=== PATIENT | male | born 1945 | race Caucasian/White ===

== ENCOUNTER 2022-09-14 15:51 | Outpatient (CLI) | payer MEDICARE, BC, SELFPAY | END 2022-09-14 15:52 | disposition home or self-care (01) | LOC: AMB 09-18 09:42 | PROVIDERS: PCP Family Medicine; Visit Provider Internal Medicine | DX: R53.1 Weakness (principal); R50.9 Fever, unspecified | CPT/HCPCS: A0425; A0427 ==

== ENCOUNTER 2022-09-14 16:30 | Inpatient (IN) | payer MEDICARE, BC, SELFPAY ==
[2022-09-14] VITALS (25 sets, daily range): BP systolic 94–135; BP diastolic 44–69; PULSE 92–115; RESP 18; TEMP 36.9–39.1; O2SAT 92–97; BMI 30.7; BMI 31.4
[2022-09-14 17:30] LABS: Appearance Urine Clear (Clear); Bilirubin Urine Negative (Negative); Blood Urine Trace-intact (Negative); Color Urine Yellow (Yellow); Glucose Urine Negative (Negative); Ketones Urine Negative (Negative); Leukocyte Esterase Urine Trace (Negative); Nitrite Urine Positive (Negative); Protein Urine 1+ (Negative); Urobilinogen Urine 0.2 (0.2-1.0); pH Urine 5.5 (5.0-8.5)
[2022-09-14 17:38] LABS: Bacteria Urine Few; RBC Urine 0-2 (0-2); Squamous Epithelial Cell Urine Few (None-Few); WBC Urine 0-2 (0-5)
[2022-09-14 17:57] LABS: Lactate* 1.3 mmol/L (0.5-1.9)
[2022-09-14 17:58] LABS: Basophils Percent Auto 0.2 % (0.0-3.0); Hematocrit 26.1 % (37.0-53.0); Hemoglobin* 9.1 gm/dL (13.5-17.5); Immature Granulocytes Pct Auto 2.1 %; Lymphocytes Percent Auto 10.4 % (20-44); Mean Corpuscular HGB Conc 35 gm/dL (32-36); Mean Corpuscular Hemoglobin 28 pg (26-34); Mean Corpuscular Volume 81 fL (80-100); Monocytes Percent Auto 23.3 % (0.0-11.0); Platelet Count* 61 K/uL (140-440); Red Blood Count 3.23 m/uL (4.30-5.90); White Blood Count* 4.24 K/uL (4.50-11.00)
[2022-09-14 18:01] LABS: Slide Review Reflex No
[2022-09-14 18:02] LABS: Albumin* 3.9 g/dL (3.3-5.0); Chloride* 99 mmol/L (96-114); Potassium* 3.6 mmol/L (3.6-5.1); Sodium* 131 mmol/L (135-149)
[2022-09-14 18:05] LABS: Alanine Aminotransferase* 17 U/L (4-50); Alkaline Phosphatase* 55 U/L (40-150); Aspartate Amino Transferase* 22 U/L (12-35); Bilirubin Direct* 0.6 mg/dL (0.0-0.5); Bilirubin Total* 1.9 mg/dL (0.1-1.5); Blood Urea Nitrogen* 16 mg/dL (7-30); Calcium* 8.9 mg/dL (8.4-10.6); Carbon Dioxide* 23 mmol/L (20-32); Creatinine* 0.9 mg/dL (0.5-1.5); Est. Creatinine Clearance* 65.89; Estimated Glomerular Filt Rate 88 ml/min; Glucose* 107 mg/dL (60-115); Total Protein* 7.3 g/dL (6.0-8.3)
[2022-09-14] MEDS: 0.9 % SODIUM CHLORIDE 1000 ml 1,000 ML 500 ML IV (18:29)
--- NOTE | 2022-09-14 18:46 | ED_ITS ---
HPI - General Adult General Date Seen: 09/14/22 Chief complaint: Weakness Stated complaint: hypotensive Time Seen by Provider: 09/14/22 17:53 Source: patient and family Mode of arrival: EMS Limitations: no limitations History of Present Illness HPI narrative: Patient is a 76-year-old male who has been ill for the past couple of weeks. He was diagnosed with a urinary tract infection two and half weeks ago and treated as an outpatient with a course of Bactrim. His urine culture grew pansensitive E coli. He did seem to get better for a couple of days but is now feeling more weak over the past day or two. His blood pressure has been lower. He denies any dysuria, urgency, frequency. Today he spiked a fever up to 102.5. He has been too weak to get up and walk around his home. He has had very little to eat or drink today. He denies any hematuria. He denies back pain. Related Data Home Medications Medication Instructions Recorded Confirmed aspirin 81 mg capsule 81 mg PO DAILY 09/14/22 09/14/22 blood sugar diagnostic (Accu-Chek 09/14/22 09/14/22 Alejandrina Plus test strips) hydrochlorothiazide 25 mg tablet 25 mg PO DAILY 09/14/22 09/14/22 lancets (Accu-Chek Softclix 09/14/22 09/14/22 Lancets) lisinopril 20 mg tablet 20 mg PO DAILY 09/14/22 09/14/22 simvastatin 20 mg tablet 20 mg PO QPM 09/14/22 09/14/22 Previous Rx's Medication Instructions Recorded amoxicillin 500 mg capsule 2,000 mg PO ONCE #4 caps 12/27/21 Allergies Allergy/AdvReac Type Severity Reaction Status Date / Time No Known Drug Allergies Allergy Verified 09/14/22 16:37 Review of Systems Narrative: Review of systems is outlined above otherwise noted to be negative. He will be seeing a psychologist educational in a week or two for pancytopenia. His PCP is Dr. Ballard in [place] but is recent urinary tract infection was treated by Dr. Hicks in [place]. 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) ?Z96.641 - Presence of right artificial hip joint (ICD-10) Social History Highest level of school completed/degree received: Bachelor's degree Smoking Status: Former smoker Do you use any of these nicotine containing products: None Second hand tobacco smoke exposure: No How often do you have a drink containing alcohol: 2-3 times a week How many standard drinks containing alcohol do you have on a typical day: 1 or 2 How often do you have six or more drinks on one occasion: Never AUDIT-C Alcohol total score: 3 Non-prescribed substance use: denies use Caffeine: No service: Yes Exam Narrative: Exam Narrative: Vitals noted. Temp is 102.5?. Heart rate is about 110. Blood pressure 99/57. HEENT: Conjunctiva clear. Tympanic membranes are pearly white bilaterally. Posterior pharynx is clear without erythema or exudate. Neck is supple without adenopathy, thyromegaly, carotid bruit. Lungs: Clear to auscultation in all merchant. No wheezes, rales, rhonchi. Heart: Regular rate and rhythm without murmur. Abdomen: Soft and nontender. No guarding, rigidity, rebound. Bowel sounds are normal. No palpable masses. No CVA or suprapubic tenderness. Extremities: No cyanosis or edema. Good distal pulses. Skin: No abnormalities noted of the exposed skin. He is pale. Neurologic: Awake, alert, fully oriented. Neurologic exam is nonfocal. Const: Vital Signs, click to edit/add: Vital Signs - 24 hr 09/14/22 16:33 09/14/22 17:25 09/14/22 17:46 Temperature 102.4 F H Pulse Rate 107 H Pulse Rate [Pulse Oximeter] 115 H Respiratory Rate 18 Blood Pressure 127/65 107/64 Blood Pressure [Le ft Upper Arm] 135/69 Pulse Oximetry 94 92 Oxygen Delivery Me thod Room Air 09/14/22 17:47 09/14/22 18:00 09/14/22 18:03 Temperature Pulse Rate 106 H 107 H 104 H Pulse Rate [Pulse Oximeter] Respiratory Rate Blood Pressure 99/57 L Blood Pressure [Le ft Upper Arm] Pulse Oximetry 93 96 94 Oxygen Delivery Me thod 09/14/22 18:15 09/14/22 18:30 09/14/22 18:32 Temperature Pulse Rate 105 H 105 H 107 H Pulse Rate [Pulse Oximeter] Respiratory Rate Blood Pressure 99/46 L Blood Pressure [Le ft Upper Arm] Pulse Oximetry 93 96 97 Oxygen Delivery Me thod 09/14/22 18:45 09/14/22 16:30 09/14/22 19:00 Temperature Pulse Rate 103 H 98 Pulse Rate [Pulse Oximeter] Respiratory Rate Blood Pressure Blood Pressure [Le ft Upper Arm] Pulse Oximetry 95 93 95 Oxygen Delivery Me thod 09/14/22 19:02 09/14/22 19:03 Temperature Pulse Rate 104 H 106 H Pulse Rate [Pulse Oximeter] Respiratory Rate Blood Pressure 111/64 Blood Pressure [Le ft Upper Arm] Pulse Oximetry 97 96 Oxygen Delivery Me thod Course Reevaluation(s) Reevaluation #1: Patient was seen and examined. Labs are ordered. He is given Tylenol 1000 mg orally. IV is established and he is given 1 L of normal saline. Reevaluation #2: Swab for COVID is negative. UA is nitrite positive with trace blood and leukocyte esterase, 1+ protein, a few bacteria. Urine culture is pending. Blood culture is pending. ProBNP is 250. LFTs are normal other than a bilirubin of 1.9. CRP is 2.0. Magnesium is 1.7. Basic metabolic panel is normal other than a sodium of 131. CBC shows hemoglobin of 9.1 [place] [address]. Patient is feeling better after his fevers treated. His lactate is normal at 1.3. Vital Signs Vital signs: Initial Vital Signs Pulse Oximetry 93 09/14/22 16:30 Vital Signs Pulse Oximetry 93 09/14/22 16:30 Temperature 100.5 F H 09/14/22 20:20 Pulse Rate 93 09/14/22 20:04 Respiratory Rate 18 09/14/22 20:04 Blood Pressure 114/64 09/14/22 20:04 Pulse Oximetry 93 09/14/22 20:04 Oxygen Delivery Method Room Air 09/14/22 20:04 Medical Decision Making MDM Narrative Medical decision making narrative: He has urinary tract infection and possible urosepsis. Decision is made to admit him to the hospital. Dr. Valdes is accepting. He is given Rocephin 2 g IV after collection of his blood cultures. Lab Data Labs: Lab Results 09/14/22 09/14/22 09/14/22 Range/Units 16:52 17:20 18:45 WBC 4.24 L (4.50-11.00) K/uL RBC 3.23 L (4.30-5.90) m/uL Hgb 9.1 L (13.5-17.5) gm/dL Hct 26.1 L (37.0-53.0) % MCV 81 (80-100) fL MCH 28 (26-34) pg MCHC 35 (32-36) gm/dL RDW Coeff of Lenora 17.0 H (11.5-15.5) % Plt Count 61 L (140-440) K/uL Neut % (Auto) 64.0 (42.0-72.0) % Lymph % (Auto) 10.4 L (20-44) % [place] % (Auto) 23.3 H (0.0-11.0) % Eos % (Auto) 0.0 (0.0-7.0) % Baso % (Auto) 0.2 (0.0-3.0) % Neut # (Auto) 2.70 (1.7-7.0) K/uL Lymph # (Auto) 0.40 L (0.90-2.90) K/uL [place] # (Auto) 1.00 H (0.00-0.90) K/UL Eos # (Auto) 0.00 (0.00-0.50) K/uL Baso # (Auto) 0.00 (0.00-0.30) K/uL Sodium 131 L (135-149) mmol/L Potassium 3.6 (3.6-5.1) mmol/L Chloride 99 (96-114) mmol/L Carbon Dioxide 23 (20-32) mmol/L BUN 16 (7-30) mg/dL Creatinine 0.9 (0.5-1.5) mg/dL Estimated Creat Clear 65.89 Estimated GFR 88 ml/min Glucose 107 (60-115) mg/dL Hemoglobin A1c 5.07 (0-5.6) % Lactate 1.3 (0.5-1.9) mmol/L Calcium 8.9 (8.4-10.6) mg/dL Magnesium 1.7 (1.5-2.6) mg/dL Total Bilirubin 1.9 H (0.1-1.5) mg/dL Direct Bilirubin 0.6 H (0.0-0.5) mg/dL AST 22 (12-35) U/L ALT 17 (4-50) U/L Alkaline Phosphatase 55 (40-150) U/L C-Reactive Protein 2.0 H (0.5-1.0) mg/dL NT-Pro-B Natriuret Pep 250 pg/mL Total Protein 7.3 (6.0-8.3) g/dL Albumin 3.9 (3.3-5.0) g/dL Procalcitonin 0.21 (<0.50) ng/mL Urine Color Yellow (Yellow) Urine Appearance Clear (Clear) Urine pH 5.5 (5.0-8.5) Ur Specific [place] 1.020 (1.000-1.030) Urine Protein 1+ A (Negative) Urine Glucose (UA) Negative (Negative) Urine Ketones Negative (Negative) Urine Blood Trace-intact A (Negative) Urine Nitrite Positive A (Negative) Urine Bilirubin Negative (Negative) Urine Urobilinogen 0.2 (0.2-1.0) Ur Leukocyte Esterase Trace A (Negative) Urine RBC 0-2 (0-2) Urine WBC 0-2 (0-5) Ur Squamous Epith Cells Few (None-Few) Urine Bacteria Few A (None) SARS-CoV-2 (PCR) Negative SARS-CoV-2 (Negative) Discharge Plan Discharge Clinical Impression: Acute UTI Patient Disposition: Admitted As Inpatient Condition: Guarded Activity Level: Activity as Tolerated Discharge Diet: Regular
[2022-09-14] MEDS: cefTRIAXone 2 GM in 0.9 % SODIUM CHLORIDE Mini-bag 100 ML IVPB (18:55)
[2022-09-14 19:22] LABS: SARS PCR* Negative SARS-CoV-2 (Negative)
[2022-09-14] MEDS: ACETAMINOPHEN 500 MG TABLET 1000 MG PO (19:39)
--- NOTE | 2022-09-14 19:45 | ED.NURSE ---
Report to ssds mk 2 advanced operator. Patient ambulated to the restroom without without difficulty. To Med surg via wheelchair with IVF infusing.
--- NOTE | 2022-09-14 19:54 | P.IMHP_ITS ---
Hospitalist- H&P: HPI History of Present Illness Date Seen: 09/14/22 Chief complaint: hypotensive Narrative: ADMISSION HISTORY AND PHYSICAL - HOSPITALIST Chief Complaint: Fever, weakness HPI: 76 yo with a history of pancytopenia, obesity, prediabetes, hypertension presents to our ER with acute weakness, fever and chills. He was diagnosed with a UTI back on August 28. This grew a pansensitive E coli. He was treated with 3 days of Bactrim DS. He said he felt well afterwards. His provider had sent him to Urology. He went to [facility] yesterday. Note is not available in the patient reports, ?they did not think much of the situation?. He said he woke up this morning feeling pretty good but by mid day he started to feel chilled, weak and febrile. He came this afternoon to our ED. he had a fever of 102. He was given fluid resuscitation, Tylenol, and his workup revealed a UTI. Blood cultures are pending prior to his 2 g Rocephin infusion. His lactate was normal. ER COURSE: Fluids, Rocephin. Distal Medicine team was asked to admit secondary to some mild hypotension CODE STATUS: Full code EMERGENCY CONTACT PLAN: I've updated the PFSH, medications and allergies in the Expanse tabs. INVESTIGATIONS: LABS/MICRO/ECG/IMAGING Upon arrival to the floor 110/61. Pulse 96. Resp is 18. Temp 100.7?. O2 sat 95% on room air. Weight is 99.8 kilos. CBC reflects a white blood cell count 4.24. Hemoglobin 9.1. Platelet count 61. 4/10 his white blood cell count was 2.3, hemoglobin was 9.3, platelet count was 65. 12/22, white blood cell count 3.1, hemoglobin 11.5. Platelet count 73. Sodium is slightly depressed at 131. Otherwise his electrolytes look normal. His creatinine is 0.9. His potassium is 3.6. His lactate is 1.3. Does have a slightly elevated total bili at 1.9 with a direct of 0.6, normal LFTs and protein. His bilirubin was normal 3 days ago. UA shows 1+ protein, positive nitrite, trace leukocyte esterase, few bacteria. Blood culture x2 pending. Urine culture pending. EKG has not either not been ordered or uploaded REVIEW OF SYSTEMS: 12-point ROS completed with patient and negative unless otherwise stated in HPI or below. PHYSICAL EXAM: CONSTITUTIONAL: Resting comfortably, coherent. Does not look septic. VITAL SIGNS: see record. HEENT: Normocephalic, atraumatic. PERRL, EOMI, conjunctivae pink, no scleral icterus. Ears and nose externally normal. Pharynx normal. NECK: No JVD. No carotid bruit, no thyromegaly, no adenopathy. CHEST: Clear to auscultation bilaterally HEART: S1 and S2 normal. No harsh murmurs. Edema MUSCULOSKELETAL: No gross joint deformity or swelling. NEURO: Cranial nerves intact. Grossly intact. No asymmetric findings. SKIN: No rashes, petechiae, concerning changes PSYCHIATRIC: Euthymic. ADMIT TO MEDSURG: FLOOR CARE DVT: Lovenox GI: PO intake Time spent: 70 minutes examining patient, conferring with family and patient, care staff, developing care plan [facility] Medical History Hyperlipidemia ?E78.5 - Hyperlipidemia, unspecified (ICD-10) Hypertension ?I10 - Essential (primary) hypertension (ICD-10) Obesity ?E66.9 - Obesity, unspecified (ICD-10) Pancytopenia ?D61.818 - Other pancytopenia (ICD-10) Pre-diabetes ?R73.03 - Prediabetes (ICD-10) Surgical History Contracture of palmar fascia (Dupuytren's) ?M72.0 - Palmar fascial fibromatosis [Dupuytren] (ICD-10) H/O right inguinal hernia repair ?Z98.890 - Other specified postprocedural states (ICD-10) ?Z87.19 - Personal history of other diseases of the digestive system (ICD-10) 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) ?Z96.641 - Presence of right artificial hip joint (ICD-10) Social History Highest level of school completed/degree received: Bachelor's degree Smoking Status: Former smoker Do you use any of these nicotine containing products: None Second hand tobacco smoke exposure: No How often do you have a drink containing alcohol: 2-3 times a week How many standard drinks containing alcohol do you have on a typical day: 1 or 2 How often do you have six or more drinks on one occasion: Never AUDIT-C Alcohol total score: 3 Non-prescribed substance use: denies use Caffeine: No service: Yes Meds Home Medications and Allergies Home Medications Medication Instructions Recorded Confirmed Type aspirin 81 mg capsule 81 mg PO DAILY 09/14/22 09/14/22 History blood sugar diagnostic (Accu-Chek 09/14/22 09/14/22 History Alejandrina Plus test strips) hydrochlorothiazide 25 mg tablet 25 mg PO DAILY 09/14/22 09/14/22 History lancets (Accu-Chek Softclix 09/14/22 09/14/22 History Lancets) lisinopril 20 mg tablet 20 mg PO DAILY 09/14/22 09/14/22 History simvastatin 20 mg tablet 20 mg PO QPM 09/14/22 09/14/22 History Allergies Allergy/AdvReac Type Severity Reaction Status Date / Time No Known Drug Allergies Allergy Verified 09/14/22 16:37 Exam Const: Vital Signs, click to edit/add: Vital Signs - 24 hr 09/14/22 16:33 09/14/22 17:25 09/14/22 17:46 Temperature 102.4 F H Pulse Rate 107 H Pulse Rate [Pulse Oximeter] 115 H Respiratory Rate 18 Blood Pressure 127/65 107/64 Blood Pressure [Le ft Upper Arm] 135/69 Pulse Oximetry 94 [address] [facility] 09/14/22 17:47 09/14/22 18:00 09/14/22 18:03 Temperature Pulse Rate 106 H 107 H 104 H Pulse Rate [Pulse Oximeter] Respiratory Rate Blood Pressure 99/57 L Blood Pressure [Le ft Upper Arm] Pulse Oximetry 93 96 94 Oxygen Delivery Me thod 09/14/22 18:15 09/14/22 18:30 09/14/22 18:32 Temperature Pulse Rate 105 H 105 H 107 H Pulse Rate [Pulse Oximeter] Respiratory Rate Blood Pressure 99/46 L Blood Pressure [Le ft Upper Arm] Pulse Oximetry 93 96 97 Oxygen Delivery De thod 09/14/22 18:45 09/14/22 16:30 09/14/22 19:00 Temperature Pulse Rate 103 H 98 Pulse Rate [Pulse Oximeter] Respiratory Rate Blood Pressure Blood Pressure [Le ft Upper Arm] Pulse Oximetry 95 93 [address] [facility] [address] 09/14/22 19:02 09/14/22 19:08 09/14/22 19:03 Temperature Pulse Rate 104 H 106 H Pulse Rate [Pulse Oximeter] Respiratory Rate Blood Pressure 111/64 Blood Pressure [Le ft Upper Arm] Pulse Oximetry 97 [address] [facility] [address] 09/14/22 19:15 09/14/22 19:30 09/14/22 19:32 Temperature Pulse Rate 99 114 H 110 H Pulse Rate [Pulse Oximeter] Respiratory Rate Blood Pressure 97/44 L Blood Pressure [Le ft Upper Arm] Pulse Oximetry 96 93 95 Oxygen Delivery [facility] 09/14/22 19:36 09/14/22 19:39 Temperature 100.7 F H 100.7 F H Pulse Rate 96 Pulse Rate [Pulse Oximeter] Respiratory Rate 18 Blood Pressure 110/61 Blood Pressure [Le ft Upper Arm] Pulse Oximetry 95 Oxygen Delivery [facility] Hospitalist - H&P: Result Labs Labs: Short CBC 09/14/22 Range/Units 16:52 WBC 4.24 L (4.50-11.00) K/uL Hgb 9.1 L (13.5-17.5) gm/dL Hct 26.1 L (37.0-53.0) % Plt Count 61 L (140-440) K/uL BMP 09/14/22 16:52 Sodium 131 L Potassium 3.6 Chloride 99 Carbon Dioxide 23 BUN 16 Creatinine 0.9 Glucose 107 Calcium 8.9 Liver Function 09/14/22 Range/Units 16:52 Total Bilirubin 1.9 H (0.1-1.5) mg/dL Direct Bilirubin 0.6 H (0.0-0.5) mg/dL AST 22 (12-35) U/L ALT 17 (4-50) U/L Alkaline Phosphatase 55 (40-150) U/L Albumin 3.9 (3.3-5.0) g/dL Urine 09/14/22 Range/Units 17:20 Urine Color Yellow (Yellow) Urine Appearance Clear (Clear) Urine pH 5.5 (5.0-8.5) Ur Specific [place] 1.020 (1.000-1.030) Urine Protein 1+ A (Negative) Urine Glucose (UA) Negative (Negative) Assessment and Plan Assessment and plan (1) Acute UTI: Problem comment: -urine culture from August 28 grew a pansensitive E coli. He was treated with 3 days of Bactrim DS. He was given a urology consult. [facility] saw him on yesterday, 09/13/2022. His blood pressure at the 08/28 visit was 98/60. He did state he thought Bactrim helped any felt better until today. -2 g ceftriaxone given in the ED, I will follow this up in 12 hours with 2 more g. IV fluids. Lovenox. Blood cultures are brewing. Status: Acute (2) Hyponatremia: Problem comment: Sodium 131. I will give him 2 L fluid restriction. Normal saline IV fluids. Status: Acute (3) Pancytopenia: Problem comment: -known issue. No worse tonight. Has a hematology consult next week. Status: Acute (4) Hypertension: Problem comment: -Hold home meds Status: Acute (5) Pre-diabetes: Problem comment: -check A1c. Accu-Cheks. Sliding scale if needed. No home meds. Status: Acute (6) Obesity: Status: Acute
--- NOTE | 2022-09-14 20:50 | CRLHL7_ITS ---
For Patients: As a result of the Cures Act, medical imaging exams and procedure reports are released immediately into your electronic medical record. You may view this report before your referring provider. If you have questions, please contact your health care provider. INDICATION: .FEVER, SEPSIS WORK UP TECHNIQUE: Chest 1 views. COMPARISON: None. FINDINGS: Lungs: Normal lung volume. No consolidation. The tracheobronchial tree and hilar structures are unremarkable. Pleura: No pleural effusion or pneumothorax. Heart and Mediastinum: Normal heart size. Atherosclerotic aorta. Bones: No acute displaced osseous process. IMPRESSION: No consolidation. Dictated by Jw Ring MD @ 09/14/2022 9:55:34 PM (Electronically Signed)
[2022-09-14] MEDS: SODIUM CHLORIDE 0.9 % (FLUSH) 10 ML SYRINGE 5 ML IVF (21:03)
[2022-09-14] MEDS: PANTOPRAZOLE SODIUM 40 MG INJ IVP (21:03)
[2022-09-14 21:06] LABS: Magnesium* 1.7 mg/dL (1.5-2.6)
[2022-09-14 21:07] LABS: Hemoglobin A1C* 5.07 % (0-5.6)
[2022-09-14 21:17] LABS: NT Pro B Type NatriureticPept* 250 pg/mL
[2022-09-14 21:24] LABS: Procalcitonin* 0.21 ng/mL (<0.50)
[2022-09-14] MEDS: 0.9 % SODIUM CHLORIDE 1000 ml 1,000 ML 125 ML IV (21:34)
[2022-09-14] MEDS: ENOXAPARIN 40 MG/0.4 ML INJ SUBCUT (21:35)
[2022-09-15] VITALS (18 sets, daily range): BP systolic 84–122; BP diastolic 5–66; PULSE 68–99; RESP 18–20; TEMP 36.4–37.7; O2SAT 18–97
[2022-09-15] MEDS: ACETAMINOPHEN 325 MG TABLET PO ×2 (04:04→11:36)
--- NOTE | 2022-09-15 04:28 | PM.IMPN1 ---
Subjective Date Seen: 09/15/22 Interval history: Getachew Bartlettist Cross Cover Note eHospitalist was contacted by nursing staff with concern of hypotension with manual BP of 88/50. NS bolus 250 cc over 1 hour. Thank you for including Getachew Bartlettist in the patients care. This service is available for further assistance as requested by your care team by calling [phone]. Exam Const: Vital Signs, click to edit/add: Vital Signs - 24 hr 09/14/22 16:33 09/14/22 17:25 09/14/22 17:46 Temperature 102.4 F H Pulse Rate 107 H Pulse Rate [Pulse Oximeter] 115 H Pulse Rate [Right Radial] Respiratory Rate 18 Blood Pressure 127/65 107/64 Blood Pressure [Le ft Arm] Blood Pressure [Le ft Upper Arm] 135/69 Pulse Oximetry 94 92 Oxygen Delivery Me thod Room Air 09/14/22 17:47 09/14/22 18:00 09/14/22 18:03 Temperature Pulse Rate 106 H 107 H 104 H Pulse Rate [Pulse Oximeter] Pulse Rate [Right Radial] Respiratory Rate Blood Pressure 99/57 L Blood Pressure [Le ft Arm] Blood Pressure [Le ft Upper Arm] Pulse Oximetry 93 96 94 Oxygen Delivery Me thod 09/14/22 18:15 09/14/22 18:30 09/14/22 18:32 Temperature Pulse Rate 105 H 105 H 107 H Pulse Rate [Pulse Oximeter] Pulse Rate [Right Radial] Respiratory Rate Blood Pressure 99/46 L Blood Pressure [Le ft Arm] Blood Pressure [Le ft Upper Arm] Pulse Oximetry 93 96 97 Oxygen Delivery Me thod 09/14/22 18:45 09/14/22 16:30 09/14/22 19:00 Temperature Pulse Rate 103 H 98 Pulse Rate [Pulse Oximeter] Pulse Rate [Right Radial] Respiratory Rate Blood Pressure Blood Pressure [Le ft Arm] Blood Pressure [Le ft Upper Arm] Pulse Oximetry 95 93 95 Oxygen Delivery Me thod 09/14/22 19:02 09/14/22 19:08 09/14/22 19:03 Temperature Pulse Rate 104 H 106 H Pulse Rate [Pulse Oximeter] Pulse Rate [Right Radial] Respiratory Rate Blood Pressure 111/64 Blood Pressure [Le ft Arm] Blood Pressure [Le ft Upper Arm] Pulse Oximetry 97 95 96 Oxygen Delivery Me thod 09/14/22 19:15 09/14/22 19:30 09/14/22 19:32 Temperature Pulse Rate 99 114 H 110 H Pulse Rate [Pulse Oximeter] Pulse Rate [Right Radial] Respiratory Rate Blood Pressure 97/44 L Blood Pressure [Le ft Arm] Blood Pressure [Le ft Upper Arm] Pulse Oximetry 96 93 95 Oxygen Delivery Me thod 09/14/22 19:36 09/14/22 19:39 09/14/22 20:01 Temperature 100.7 F H 100.7 F H 100.5 F H Pulse Rate 96 Pulse Rate [Pulse Oximeter] Pulse Rate [Right Radial] 93 Respiratory Rate 18 18 Blood Pressure 110/61 Blood Pressure [Le ft Arm] 114/64 Blood Pressure [Le ft Upper Arm] Pulse Oximetry 95 93 Oxygen Delivery Me thod Room Air 09/14/22 20:03 09/14/22 20:04 09/14/22 20:04 Temperature 100.5 F H Pulse Rate Pulse Rate [Pulse Oximeter] Pulse Rate [Right Radial] 93 Respiratory Rate 18 Blood Pressure Blood Pressure [Le ft Arm] 114/64 Blood Pressure [Le ft Upper Arm] Pulse Oximetry 93 93 93 Oxygen Delivery Me od Room Air Room Air Room Air 09/14/22 20:20 09/14/22 23:00 09/14/22 23:00 Temperature 100.5 F H 98.5 F Pulse Rate Pulse Rate [Pulse Oximeter] Pulse Rate [Right Radial] 92 92 Respiratory Rate 18 18 Blood Pressure Blood Pressure [Le ft Arm] 94/48 L Blood Pressure [Le ft Upper Arm] Pulse Oximetry 97 Oxygen Delivery Me thod Room Air 09/15/22 01:12 09/15/22 04:04 Temperature 99.6 F Pulse Rate 91 Pulse Rate [Pulse Oximeter] Pulse Rate [Right Radial] Respiratory Rate Blood Pressure Blood Pressure [Le ft Arm] Blood Pressure [Le ft Upper Arm] Pulse Oximetry Oxygen Delivery Me thod Labs Labs: Laboratory Results - last 24 hr 09/14/22 09/14/22 09/14/22 16:52 17:20 18:45 WBC 4.24 L RBC 3.23 L Hgb 9.1 L Hct 26.1 L MCV 81 MCH 28 MCHC 35 RDW Coeff of Lenora 17.0 H Plt Count 61 L Neut % (Auto) 64.0 Lymph % (Auto) 10.4 L [place] % (Auto) 23.3 H Eos % (Auto) 0.0 Baso % (Auto) 0.2 Neut # (Auto) 2.70 Lymph # (Auto) 0.40 L [place] # (Auto) 1.00 H Eos # (Auto) 0.00 Baso # (Auto) 0.00 Sodium 131 L Potassium 3.6 Chloride 99 Carbon Dioxide 23 BUN 16 Creatinine 0.9 Estimated Creat Clear 65.89 Estimated GFR 88 Glucose 107 Hemoglobin A1c 5.07 Lactate 1.3 Calcium 8.9 Magnesium 1.7 Total Bilirubin 1.9 H Direct Bilirubin 0.6 H AST 22 ALT 17 Alkaline Phosphatase 55 C-Reactive Protein 2.0 H NT-Pro-B Natriuret Pep 250 Total Protein 7.3 Albumin 3.9 Procalcitonin 0.21 Urine Color Yellow Urine Appearance Clear Urine pH 5.5 Ur Specific [place] 1.020 Urine Protein 1+ A Urine Glucose (UA) Negative Urine Ketones Negative Urine Blood Trace-intact A Urine Nitrite Positive A Urine Bilirubin Negative Urine Urobilinogen 0.2 Ur Leukocyte Esterase Trace A Urine RBC 0-2 Urine WBC 0-2 Ur Squamous Epith Cells Few Urine Bacteria Few A SARS-CoV-2 (PCR) Negative SARS-CoV-2
[2022-09-15] MEDS: 0.9 % SODIUM CHLORIDE 250 ml 250 ML IV (04:42)
[2022-09-15] MEDS: cefTRIAXone 2 GM in 0.9 % SODIUM CHLORIDE Mini-bag 100 ML IVPB (06:39)
[2022-09-15] MEDS: 0.9 % SODIUM CHLORIDE 1000 ml 1,000 ML 125 ML IV ×2 (06:40→17:26)
[2022-09-15 06:56] LABS: HCO3 VBG 26 mmol/L (21-28); Ionized Calcium* 1.11 mmol/L (1.11-1.30); PCO2 VBG 42 mmHG (40-50); PO2 VBG 22.6 mmHG (25-47); pH VBG 7.402 (7.32-7.43)
[2022-09-15 07:05] LABS: Basophils Absolute Auto 0.02 K/uL (0.00-0.30); Basophils Percent Auto 0.3 % (0.0-3.0); Hematocrit 22.9 % (37.0-53.0); Immature Granulocytes Abs Auto 0.26 K/uL (0.00-0.30); Immature Granulocytes Pct Auto 3.4 %; Lymphocytes Percent Auto 10.7 % (20-44); Mean Corpuscular HGB Conc 34 gm/dL (32-36); Mean Corpuscular Hemoglobin 28 pg (26-34); Mean Corpuscular Volume 82 fL (80-100); Monocytes Percent Auto 26.4 % (0.0-11.0); Neutrophils Absolute Auto 4.58 K/uL (1.7-7.0); Neutrophils Percent Auto 59.2 % (42.0-72.0); RDW Coefficient of Variation % 17.2 % (11.5-15.5); Red Blood Count 2.79 m/uL (4.30-5.90); White Blood Count* 7.73 K/uL (4.50-11.00)
[2022-09-15 07:18] LABS: INR 1.58 (0.91-1.10); Prothrombin Time 19.8 Seconds
[2022-09-15 07:20] LABS: Albumin* 3.1 g/dL (3.3-5.0); Chloride* 103 mmol/L (96-114); Sodium* 134 mmol/L (135-149)
[2022-09-15 07:21] LABS: Potassium* 3.4 mmol/L (3.6-5.1)
[2022-09-15 07:23] LABS: Bilirubin Total* 1.6 mg/dL (0.1-1.5); Creatinine* 1.3 mg/dL (0.5-1.5); Est. Creatinine Clearance* 50.68; Estimated Glomerular Filt Rate 57 ml/min
[2022-09-15 07:24] LABS: Alanine Aminotransferase* 14 U/L (4-50); Alkaline Phosphatase* 42 U/L (40-150); Aspartate Amino Transferase* 13 U/L (12-35); Blood Urea Nitrogen* 22 mg/dL (7-30); Carbon Dioxide* 25 mmol/L (20-32); Glucose* 115 mg/dL (60-115); Magnesium* 1.7 mg/dL (1.5-2.6); Total Protein* 5.9 g/dL (6.0-8.3)
[2022-09-15 07:26] LABS: C Reactive Protein* 7.4 mg/dL (0.5-1.0)
[2022-09-15 07:36] LABS: Troponin I* 0.03 ng/mL (0.01-0.04)
--- NOTE | 2022-09-15 07:36 | PC.NURSE ---
Shift note: BP was 88/50 at about 0400( the pt denied chest pain, short of breath, and dizzy)- E-hospitalist was called via telephone and an order for 250 ml of NS bolus received and given ; rechecked BP after the bolus for 99/50. The pt was very sweaty- denied chills . He stated I'm just tired. Orthostatic BP was done this AM- Dr Valdes was updated this AM.
[2022-09-15 08:01] LABS: Hemoglobin* 7.7 gm/dL (13.5-17.5); Platelet Count* 43 K/uL (140-440); Slide Review Reflex Yes
[2022-09-15 08:02] LABS: Slide Review Acceptable Review (Acceptable)
--- NOTE | 2022-09-15 10:40 | PM.IMPN1 ---
Progress Note: A&P Assessment and plan (1) Acute UTI: Problem details: -current urine culture is still pending as are blood cultures -procal and crp uptrending. WBC, while normal, is likely bumped from baseline neutropenia. -urine culture from August 28 grew a pansensitive E coli. He was treated with 3 days of Bactrim DS. -He was given a urology consult. [facility] saw him 09/13/2022. No note available. His blood pressure at the 08/28 visit was 98/60. -2 g ceftriaxone q24 hours. had had two doses as of am of 09/15. IV fluids. Lovenox. Status: Acute (2) Pancytopenia: Problem details: -known issue. hgb worse this am, transfusing 1 unit. supportive care/transfuse as needed. -heme consult next week was arranged prior to admission. Status: Acute (3) Hyponatremia: Problem details: improving. trend. Status: Acute (4) Pre-diabetes: Problem details: -A1c 5.0. Accu-Cheks. Sliding scale if needed. No home meds. Status: Acute (5) Obesity: Status: Acute (6) Hypertension: Problem details: -Hold home meds Status: Acute Subjective Date Seen: 09/15/22 Interval history: Daily Progress Note - Hospital Medicine #: 2 CC: UTI, hypotension, pancytopenia OVERNIGHT UPDATES FROM STAFF & MED, LAB, IMAGING UPDATES Patient feels about the same as last night. Still having some soft blood pressures. No new fevers. Feels hungry. Blood pressures have been 90s systolic. Afebrile. Last fever was 100.5? F at 8:00 p.m. last night. Pulses in the 80s. He is satting 94% on room air. Known pancytopenia - white blood cell count went from 4-7. His baseline had been 2. This likely represents a stress reaction in leukocytosis while the overall number is normal. Hemoglobin down to 7.7, platelets down to 43. PH is normal. Sodium has improved while potassium has dropped a little. His creatinine has bumped up to 1.3. Is on fluids. Total bilirubin is down trending to 1.6. On admission it was 1.9. He had been normal previously. Procalcitonin is up trending. CRP is up trending. Urine culture and blood cultures are still pending. Objective: tired but nontoxic. hungry. insightful. Vitals: see above Lungs: Clear. Cardiac: S1S2. abdmen: obese, nontender. Disposition/Potential discharge - Likely to return to previous living situation. Total time is 35 minutes with greater than 50% spent in counseling and coordination of care. Exam Const: Vital Signs, click to edit/add: Vital Signs - 24 hr 09/14/22 16:33 09/14/22 17:25 09/14/22 17:46 Temperature 102.4 F H Pulse Rate 107 H Pulse Rate [Pulse Oximeter] 115 H Pulse Rate [Right Radial] Pulse Rate [orthos tatic lying Right Pulse Oximeter] Pulse Rate [orthos tatic sitting Righ t Pulse Oximeter] Pulse Rate [orthos tatic standing Rig ht] Respiratory Rate 18 Blood Pressure 127/65 107/64 Blood Pressure [Le ft Arm] Blood Pressure [Le ft Upper Arm] 135/69 Blood Pressure [or thostatic lying] Blood Pressure [or thostatic sitting Right Arm] Blood Pressure [or thostatic standing ] Pulse Oximetry 94 92 Oxygen Delivery Me thod Room Air 09/14/22 17:47 09/14/22 18:00 09/14/22 18:03 Temperature Pulse Rate 106 H 107 H 104 H Pulse Rate [Pulse Oximeter] Pulse Rate [Right Radial] Pulse Rate [orthos tatic lying Right Pulse Oximeter] Pulse Rate [orthos tatic sitting Righ t Pulse Oximeter] Pulse Rate [orthos tatic standing Rig ht] Respiratory Rate Blood Pressure 99/57 L Blood Pressure [Le ft Arm] Blood Pressure [Le ft Upper Arm] Blood Pressure [or thostatic lying] Blood Pressure [or thostatic sitting Right Arm] Blood Pressure [or thostatic standing ] Pulse Oximetry 93 96 94 Oxygen Delivery Me thod 09/14/22 18:15 09/14/22 18:30 09/14/22 18:32 Temperature Pulse Rate 105 H 105 H 107 H Pulse Rate [Pulse Oximeter] Pulse Rate [Right Radial] Pulse Rate [orthos tatic lying Right Pulse Oximeter] Pulse Rate [orthos tatic sitting Righ t Pulse Oximeter] Pulse Rate [orthos tatic standing Rig ht] Respiratory Rate Blood Pressure 99/46 L Blood Pressure [Le ft Arm] Blood Pressure [Le ft Upper Arm] Blood Pressure [or thostatic lying] Blood Pressure [or thostatic sitting Right Arm] Blood Pressure [or thostatic standing ] Pulse Oximetry 93 96 97 Oxygen Delivery Me thod 09/14/22 18:45 09/14/22 16:30 09/14/22 19:00 Temperature Pulse Rate 103 H 98 Pulse Rate [Pulse Oximeter] Pulse Rate [Right Radial] Pulse Rate [orthos tatic lying Right Pulse Oximeter] Pulse Rate [orthos tatic sitting Righ t Pulse Oximeter] Pulse Rate [orthos tatic standing Rig ht] Respiratory Rate Blood Pressure Blood Pressure [Le ft Arm] Blood Pressure [Le ft Upper Arm] Blood Pressure [or thostatic lying] Blood Pressure [or thostatic sitting Right Arm] Blood Pressure [or thostatic standing ] Pulse Oximetry 95 93 95 Oxygen Delivery Vt thod 09/14/22 19:02 09/14/22 19:08 09/14/22 19:03 Temperature Pulse Rate 104 H 106 H Pulse Rate [Pulse Oximeter] Pulse Rate [Right Radial] Pulse Rate [orthos tatic lying Right Pulse Oximeter] Pulse Rate [orthos tatic sitting Righ t Pulse Oximeter] Pulse Rate [orthos tatic standing Rig ht] Respiratory Rate Blood Pressure 111/64 Blood Pressure [Le ft Arm] Blood Pressure [Le ft Upper Arm] Blood Pressure [or thostatic lying] Blood Pressure [or thostatic sitting Right Arm] Blood Pressure [or thostatic standing ] Pulse Oximetry 97 95 96 Oxygen Delivery Vt thod 09/14/22 19:15 09/14/22 19:30 09/14/22 19:32 Temperature Pulse Rate 99 114 H 110 H Pulse Rate [Pulse Oximeter] Pulse Rate [Right Radial] Pulse Rate [orthos tatic lying Right Pulse Oximeter] Pulse Rate [orthos tatic sitting Righ t Pulse Oximeter] Pulse Rate [orthos tatic standing Rig ht] Respiratory Rate Blood Pressure 97/44 L Blood Pressure [Le ft Arm] Blood Pressure [Le ft Upper Arm] Blood Pressure [or thostatic lying] Blood Pressure [or thostatic sitting Right Arm] Blood Pressure [or thostatic standing ] Pulse Oximetry 96 93 95 Oxygen Delivery Me thod 09/14/22 19:36 09/14/22 19:39 09/14/22 20:01 Temperature 100.7 F H 100.7 F H 100.5 F H Pulse Rate 96 Pulse Rate [Pulse Oximeter] Pulse Rate [Right Radial] 93 Pulse Rate [orthos tatic lying Right Pulse Oximeter] Pulse Rate [orthos tatic sitting Righ t Pulse Oximeter] Pulse Rate [orthos tatic standing Rig ht] Respiratory Rate 18 18 Blood Pressure 110/61 Blood Pressure [Le ft Arm] 114/64 Blood Pressure [Le ft Upper Arm] Blood Pressure [or thostatic lying] Blood Pressure [or thostatic sitting Right Arm] Blood Pressure [or thostatic standing ] Pulse Oximetry 95 93 Oxygen Delivery Me thod Room Air 09/14/22 20:03 09/14/22 20:04 09/14/22 20:04 Temperature 100.5 F H Pulse Rate Pulse Rate [Pulse Oximeter] Pulse Rate [Right Radial] 93 Pulse Rate [orthos tatic lying Right Pulse Oximeter] Pulse Rate [orthos tatic sitting Righ t Pulse Oximeter] Pulse Rate [orthos tatic standing Rig ht] Respiratory Rate 18 Blood Pressure Blood Pressure [Le ft Arm] 114/64 Blood Pressure [Le ft Upper Arm] Blood Pressure [or thostatic lying] Blood Pressure [or thostatic sitting Right Arm] Blood Pressure [or thostatic standing ] Pulse Oximetry 93 93 93 Oxygen Delivery Me thod Room Air Room Air Room Air 09/14/22 20:20 09/14/22 23:00 09/14/22 23:00 Temperature 100.5 F H 98.5 F Pulse Rate Pulse Rate [Pulse Oximeter] Pulse Rate [Right Radial] 92 92 Pulse Rate [orthos tatic lying Right Pulse Oximeter] Pulse Rate [orthos tatic sitting Righ t Pulse Oximeter] Pulse Rate [orthos tatic standing Rig ht] Respiratory Rate 18 18 Blood Pressure Blood Pressure [Le ft Arm] 94/48 L Blood Pressure [Le ft Upper Arm] Blood Pressure [or thostatic lying] Blood Pressure [or thostatic sitting Right Arm] Blood Pressure [or thostatic standing ] Pulse Oximetry 97 Oxygen Delivery Me thod Room Air 09/15/22 01:12 09/15/22 04:04 09/15/22 04:00 Temperature 99.6 F 99.6 F Pulse Rate 91 Pulse Rate [Pulse Oximeter] Pulse Rate [Right Radial] 99 Pulse Rate [orthos tatic lying Right Pulse Oximeter] Pulse Rate [orthos tatic sitting Righ t Pulse Oximeter] Pulse Rate [orthos tatic standing Rig ht] Respiratory Rate 18 Blood Pressure Blood Pressure [Le ft Arm] 88/50 L Blood Pressure [Le ft Upper Arm] Blood Pressure [or thostatic lying] Blood Pressure [or thostatic sitting Right Arm] Blood Pressure [or thostatic standing ] Pulse Oximetry 93 Oxygen Delivery Me thod Room Air 09/15/22 06:06 09/15/22 06:00 09/15/22 06:00 Temperature 98.3 F 98.3 F Pulse Rate Pulse Rate [Pulse Oximeter] Pulse Rate [Right Radial] 87 Pulse Rate [orthos tatic lying Right Pulse Oximeter] 87 Pulse Rate [orthos tatic sitting Righ t Pulse Oximeter] 82 Pulse Rate [orthos tatic standing Rig ht] 99 Respiratory Rate 18 Blood Pressure Blood Pressure [Le ft Arm] 99/50 L Blood Pressure [Le ft Upper Arm] Blood Pressure [or thostatic lying] 99/59 L Blood Pressure [or thostatic sitting Right Arm] 84/50 L Blood Pressure [or thostatic standing ] 88/55 L Pulse Oximetry 96 Oxygen Delivery Me thod Room Air 09/15/22 07:00 09/15/22 07:00 09/15/22 07:00 Temperature 98.3 F Pulse Rate 75 Pulse Rate [Pulse Oximeter] Pulse Rate [Right Radial] 81 81 Pulse Rate [orthos tatic lying Right Pulse Oximeter] Pulse Rate [orthos tatic sitting Righ t Pulse Oximeter] Pulse Rate [orthos tatic standing Rig ht] Respiratory Rate 18 18 Blood Pressure Blood Pressure [Le ft Arm] 94/49 L Blood Pressure [Le ft Upper Arm] Blood Pressure [or thostatic lying] Blood Pressure [or thostatic sitting Right Arm] Blood Pressure [or thostatic standing ] Pulse Oximetry 94 Oxygen Delivery Me thod Room Air 09/15/22 08:06 Temperature Pulse Rate Pulse Rate [Pulse Oximeter] Pulse Rate [Right Radial] Pulse Rate [orthos tatic lying Right Pulse Oximeter] Pulse Rate [orthos tatic sitting Righ t Pulse Oximeter] Pulse Rate [orthos tatic standing Rig ht] Respiratory Rate Blood Pressure Blood Pressure [Le ft Arm] Blood Pressure [Le ft Upper Arm] Blood Pressure [or thostatic lying] Blood Pressure [or thostatic sitting Right Arm] Blood Pressure [or thostatic standing ] Pulse Oximetry 94 Oxygen Delivery Me thod Labs Labs: Laboratory Results - last 24 hr 09/14/22 09/14/22 09/14/22 16:52 17:20 18:45 WBC 4.24 L RBC 3.23 L Hgb 9.1 L Hct 26.1 L MCV 81 MCH 28 MCHC 35 RDW Coeff of Lenora 17.0 H Plt Count 61 L Neut % (Auto) 64.0 Lymph % (Auto) 10.4 L [place] % (Auto) 23.3 H Eos % (Auto) 0.0 Baso % (Auto) 0.2 Neut # (Auto) 2.70 Lymph # (Auto) 0.40 L [place] # (Auto) 1.00 H Eos # (Auto) 0.00 Baso # (Auto) 0.00 Diff Slide Review INR VBG pH VBG pCO2 VBG pO2 VBG HCO3 Sodium 131 L Potassium 3.6 Chloride 99 Carbon Dioxide 23 BUN 16 Creatinine 0.9 Estimated Creat Clear 65.89 Estimated GFR 88 Glucose 107 Hemoglobin A1c 5.07 Lactate 1.3 Calcium 8.9 Ionized Calcium Moody Magnesium 1.7 Total Bilirubin 1.9 H Direct Bilirubin 0.6 H AST 22 ALT 17 Alkaline Phosphatase 55 Troponin I C-Reactive Protein 2.0 H NT-Pro-B Natriuret Pep 250 Total Protein 7.3 Albumin 3.9 Procalcitonin 0.21 Urine Color Yellow Urine Appearance Clear Urine pH 5.5 Ur Specific [place] 1.020 Urine Protein 1+ A Urine Glucose (UA) Negative Urine Ketones Negative Urine Blood Trace-intact A Urine Nitrite Positive A Urine Bilirubin Negative Urine Urobilinogen 0.2 Ur Leukocyte Esterase Trace A Urine RBC 0-2 Urine WBC 0-2 Ur Squamous Epith Cells Few Urine Bacteria Few A SARS-CoV-2 (PCR) Negative SARS-CoV-2 Blood Type Antibody Screen Crossmatch (AHG) 09/15/22 06:32 WBC 7.73 RBC 2.79 L Hgb 7.7 L* Hct 22.9 L MCV 82 MCH 28 MCHC 34 RDW Coeff of Lenora 17.2 H Plt Count 43 L* Neut % (Auto) 59.2 Lymph % (Auto) 10.7 L [place] % (Auto) 26.4 H Eos % (Auto) 0.0 Baso % (Auto) 0.3 Neut # (Auto) 4.58 Lymph # (Auto) 0.80 L [place] # (Auto) 2.00 H Eos # (Auto) 0.00 Baso # (Auto) 0.02 Diff Slide Review Acceptable Review INR 1.58 H VBG pH 7.402 VBG pCO2 42 VBG pO2 22.6 L VBG HCO3 26 Sodium 134 L Potassium 3.4 L Chloride 103 Carbon Dioxide 25 BUN 22 Creatinine 1.3 Estimated Creat Clear 50.68 Estimated GFR 57 Glucose 115 Hemoglobin A1c Lactate Calcium 8.0 L Ionized Calcium [place] 1.11 Magnesium 1.7 Total Bilirubin 1.6 H Direct Bilirubin AST 13 ALT 14 Alkaline Phosphatase 42 Troponin I 0.03 C-Reactive Protein 7.4 H NT-Pro-B Natriuret Pep Total Protein 5.9 L Albumin 3.1 L Procalcitonin 0.90 H Urine Color Urine Appearance Urine pH Ur Specific [place] Urine Protein Urine Glucose (UA) Urine Ketones Urine Blood Urine Nitrite Urine Bilirubin Urine Urobilinogen Ur Leukocyte Esterase Urine RBC Urine WBC Ur Squamous Epith Cells Urine Bacteria SARS-CoV-2 (PCR) Blood Type O Positive Antibody Screen NEGATIVE Crossmatch (AHG) See Detail
[2022-09-15] MEDS: SODIUM CHLORIDE 0.9 % (FLUSH) 10 ML SYRINGE 5 ML IVF (11:39)
[2022-09-15 15:03] LABS: Hematocrit 26.4 % (37.0-53.0); Hemoglobin* 8.9 gm/dL (13.5-17.5); Mean Corpuscular HGB Conc 34 gm/dL (32-36); Mean Corpuscular Hemoglobin 28 pg (26-34); Mean Corpuscular Volume 83 fL (80-100); Red Blood Count 3.19 m/uL (4.30-5.90); White Blood Count* 5.94 K/uL (4.50-11.00)
[2022-09-15 15:09] LABS: Platelet Count* 31 K/uL (140-440); Slide Review Reflex No
--- NOTE | 2022-09-15 16:09 | W.PM.CROSSCO ---
Subjective Subjective Interval history: Hgb up to 8.9 from 7.7 after 1 unit PRBC. Plts trending downward, now 31. Hold enoxaparin due to bleeding risk.
--- NOTE | 2022-09-15 18:50 | PC.NURSE ---
End of shift note: Pt. pleasant and cooperative. Alert and oriented. Patient ambulated to the restroom without difficulty, and uses call light appropriately before ambulating d/t hypotension. Pt. received 1 unit of PRBC, and tolerated well. No infusion reaction noted. Hgb has improved. Pt. stated he is feeling better after getting the 1 unit. Pt. on fluid restriction. Pt. denies pain, N/V/SOB and has been 99.6 temp once. PRN tylenol administered w/relief.
[2022-09-16] VITALS (12 sets, daily range): BP systolic 109–132; BP diastolic 59–86; PULSE 81–93; RESP 18; TEMP 36.9–38.1; O2SAT 90–96
[2022-09-16] MEDS: 0.9 % SODIUM CHLORIDE 1000 ml 1,000 ML 125 ML IV ×2 (01:34→13:24)
--- NOTE | 2022-09-16 05:43 | PC.NURSE ---
Shift note: Pt has been ambulating independently to the BR. Normal sinus rhythm recorded. Denied pain, cough and SOB. Highest temperature recorded was 99.9. Fluid restriction maintained.
[2022-09-16] MEDS: cefTRIAXone 2 GM in 0.9 % SODIUM CHLORIDE Mini-bag 100 ML IVPB (06:40)
--- NOTE | 2022-09-16 14:29 | PC.NURSE ---
VSS AND AFEBRILE. REPORTS DECREASED APPETITE BUT DENIES N/V. PATIENT HAD BM THIS SHIFT. DENIES PAIN. UP AD OLIVIA BUT REPORTS FEELING FATIGUED TODAY AND NAPPING INTERMITTENTLY. IVF SALINE LOCKED. DR. BULLARD ORDERED FLUID RESTRICTION COULD BE DC'D.
--- NOTE | 2022-09-16 15:15 | P.IMPN_ITS ---
Progress Note: A&P Assessment and plan (1) Sepsis: Problem details: Likely due to UTI with failed outpatient management. Apparently had no problems with bladder emptying or retained urine. Just prior to admission also had a prostate exam which was reportedly normal. Status: Acute (2) Acute UTI: Problem details: E coli due to pansensitive E coli. Now positive blood culture also likely ill coli. Continue ceftriaxone pending culture and sensitivity on the blood culture. Status: Acute (3) Pancytopenia: Problem details: Longstanding problem. Next week has hematology follow-up Status: Acute (4) Hyponatremia: Problem details: Stop Fluid restriction and monitor. Encourage p.o. fluid and food. Stop hydrochlorothiazide Status: Acute (5) Pre-diabetes: Problem details: -A1c 5.0. Accu-Cheks. Sliding scale if needed. No home meds. Status: Acute (6) Obesity: Status: Acute (7) Hypertension: Problem details: Stop hydrochlorothiazide. Resume lisinopril as blood pressure allows Status: Acute Plan Continue in-hospital for monitoring of sepsis, awaiting blood culture identification and sensitivity. Likely discharge to home in the next 1-2 days for outpatient treatment. Time Spent With Patient Total time spent: Total time spent today is 45 minutes, 30 minutes in coordination of care discussing with patient other providers ongoing evaluation management of sepsis, UTI, pancytopenia Subjective Date Seen: 09/16/22 Interval history: 76-year-old male admitted to the hospital fever, hypotension, fatigue, malaise. Patient had been diagnosed with the UTI approximately 1 week prior to admission. He was treated with 3 days of Bactrim pre per. At follow-up with Urology. Shortly after that became ill with the above symptoms. He is admitted the hospital where he was found to have a urinary tract infection. Urine cultures growing pansensitive E coli. Blood culture is growing Gram-negative dion. He h as been treated with ceftriaxone. Reports feeling better today. His appetite is improved his strength is better. He has been on a fluid restriction would like to get off of that. Exam Narrative: Exam Narrative: He is alert and appears in no distress. He is oriented to his circumstances. He gives his own history. Respirations are clear to auscultation. Cardiovascular: S1, S2, regular rate and rhythm. No murmur gallop or rub. Abdomen: Bowel sounds active. Abdomen is soft without tenderness or mass. Extremities without edema. Good perfusion in all 4 extremities. Const: Vital Signs, click to edit/add: Vital Signs - 24 hr 09/15/22 16:06 09/15/22 19:00 09/15/22 23:00 Temperature 98 F Pulse Rate 82 Pulse Rate [Right Radial] 86 Respiratory Rate 18 Blood Pressure [Le ft Arm] 106/52 L Pulse Oximetry 97 95 Oxygen Delivery Me thod Room Air 09/15/22 23:00 09/15/22 23:00 09/16/22 00:00 Temperature 99.9 F H Pulse Rate Pulse Rate [Right Radial] 93 93 Respiratory Rate 18 18 Blood Pressure [Le ft Arm] 122/66 Pulse Oximetry 96 96 Oxygen Delivery Me thod Room Air 09/16/22 03:00 09/16/22 07:00 09/16/22 08:00 Temperature 99.3 F Pulse Rate 82 Pulse Rate [Right Radial] 93 Respiratory Rate 18 Blood Pressure [Le ft Arm] 127/61 Pulse Oximetry 94 96 Oxygen Delivery Pr thod Room Air 09/16/22 08:30 09/16/22 08:30 09/16/22 11:00 Temperature 99 F 98.5 F Pulse Rate Pulse Rate [Right Radial] 87 87 81 Respiratory Rate 18 18 18 Blood Pressure [Le ft Arm] 109/59 L 112/66 Pulse Oximetry 96 92 Oxygen Delivery Me thod Room Air Room Air Documenting provider has reviewed patient's vital signs: yes
[2022-09-16] MEDS: ACETAMINOPHEN 325 MG TABLET PO (18:58)
[2022-09-16] MEDS: SODIUM CHLORIDE 0.9 % (FLUSH) 10 ML SYRINGE 5 ML IVF (20:12)
[2022-09-16] MEDS: MAGNESIUM OXIDE 400 MG TABLET PO (20:12)
--- NOTE | 2022-09-16 22:25 | PC.NURSE ---
Shift [id number]- Patient is sleepy on and off throughout shift. Poor appetite this evening. He is up ad bell in room. Denies pain. This evening, his temperature is elevated- tylenol administered- temperature decreased after- see charting for values.
[2022-09-17] VITALS (7 sets, daily range): BP systolic 105–141; BP diastolic 58–74; PULSE 81–94; RESP 18–20; TEMP 36.7–36.9; O2SAT 91–95
--- NOTE | 2022-09-17 04:25 | PC.NURSE ---
Pt rested well this night. Up Ind in room. Pt had to be placed on 2L NC to maintain Sats in the low 90s. W/O pt was dipping to mid 80s while asleep. Reporting zero pain. Afebrile.
[2022-09-17] MEDS: cefTRIAXone 2 GM in 0.9 % SODIUM CHLORIDE Mini-bag 100 ML IVPB (06:26)
[2022-09-17 06:51] LABS: Basophils Percent Auto 0.6 % (0.0-3.0); Hematocrit 26.5 % (37.0-53.0); Hemoglobin* 8.9 gm/dL (13.5-17.5); Lymphocytes Percent Auto 28.1 % (20-44); Mean Corpuscular HGB Conc 34 gm/dL (32-36); Mean Corpuscular Hemoglobin 28 pg (26-34); Mean Corpuscular Volume 83 fL (80-100); Monocytes Percent Auto 15.8 % (0.0-11.0); Neutrophils Percent Auto 48.5 % (42.0-72.0); RDW Coefficient of Variation % 16.8 % (11.5-15.5); Red Blood Count 3.21 m/uL (4.30-5.90)
[2022-09-17 07:08] LABS: Chloride* 106 mmol/L (96-114); Sodium* 137 mmol/L (135-149)
[2022-09-17 07:09] LABS: Potassium* 3.4 mmol/L (3.6-5.1)
[2022-09-17 07:11] LABS: Creatinine* 0.8 mg/dL (0.5-1.5); Est. Creatinine Clearance* 65.89; Estimated Glomerular Filt Rate 91 ml/min
[2022-09-17 07:12] LABS: Blood Urea Nitrogen* 17 mg/dL (7-30); Calcium* 8.7 mg/dL (8.4-10.6); Carbon Dioxide* 25 mmol/L (20-32); Glucose* 103 mg/dL (60-115)
[2022-09-17 07:15] LABS: C Reactive Protein* 6.6 mg/dL (0.5-1.0)
[2022-09-17 07:27] LABS: Platelet Count* 35 K/uL (140-440); Slide Review Reflex Yes; White Blood Count* 1.71 K/uL (4.50-11.00)
[2022-09-17 08:29] LABS: D Dimer Quantitative* 1.38 ug/ml (0.00-0.50)
[2022-09-17] MEDS: MAGNESIUM OXIDE 400 MG TABLET PO ×2 (08:35→21:23)
[2022-09-17] MEDS: SODIUM CHLORIDE 0.9 % (FLUSH) 10 ML SYRINGE 5 ML IVF ×3 (08:35→21:24)
[2022-09-17 08:45] LABS: ABG PCO2 30 mmHG (35-45); Base Excess ABG 0.7 mmol/L (-3.0-3.0); HCO3 ABG 24 mmol/L (21-28); Oxygen Saturation ABG 93 % (92-100); PO2 ABG 57.3 mmHG (80-105); TCO2 ABG 22 mmol/l (21-30)
--- NOTE | 2022-09-17 09:05 | RESP.RT ---
ABGs drawn and sent to lab. Patient sitting up in bed on room air SaO2 88%, respiratory rate 20/minute, breathing regular/easy. Bilateral breath sounds clear, diminished, no wheeze or grunting noted. return patient to 1 liter Nasal Cannula, [id number] from 88% to 91%. Good clear voice, clear cough, able to clear secretions when present.
--- NOTE | 2022-09-17 09:26 | CRLHL7_ITS ---
For Patients: As a result of the Century Cures Act, medical imaging exams and procedure reports are released immediately into your electronic medical record. You may view this report before your referring provider. If you have questions, please contact your health care provider. HISTORY: Hypoxia. TECHNIQUE: Intravenous contrast enhanced CT of the chest. 74 mL of Isovue-370 intravenous contrast was administered. COMPARISON: Chest radiograph 09/14/2022. FINDINGS: There is no acute pulmonary embolism. Aortic valvular calcifications are present, a finding which may be seen with aortic stenosis. Ascending thoracic aorta is dilated measuring 4.8 cm diameter. Proximal descending thoracic aorta is dilated measuring 3.6 cm in diameter. No dissection. Coronary artery calcifications are present compatible with coronary artery disease. No significant pericardial effusion. Small mediastinal hilar lymph nodes are nonspecific. There are small bilateral pleural effusions. Mild atelectasis within the lungs. Pulmonary emphysema. No pneumothorax. - 4 cm left adrenal gland nodule is noted on image #[id number]. There is additional nodular thickening of the more superior aspect of the left adrenal gland. Small hiatal hernia. Splenomegaly. - Degenerative changes of the spine. Mild inferior endplate compression deformity of T12 could be more chronic. IMPRESSION: 1. No acute pulmonary embolism. 2. Dilatation of the thoracic aorta. Aortic valvular calcifications are present, a finding which may be seen with aortic stenosis. 3. Coronary artery disease. 4. Pulmonary emphysema. 5. Small pleural effusions with dependent atelectasis. 6. 4 cm left adrenal gland nodule. Additional nodular thickening of the more superior aspect of the adrenal gland. 7. Splenomegaly. Please note that all CT scans at this facility use dose modulation, iterative reconstruction, and/or weight-based dosing when appropriate to reduce radiation dose to as low as reasonably achievable. Dictated by Raymundo Chirinos MD @ 09/17/2022 10:25:37 AM (Electronically Signed)
[2022-09-17 09:54] LABS: Troponin I* 0.05 ng/mL (0.01-0.04)
[2022-09-17 09:56] LABS: NT Pro B Type NatriureticPept* 2550 pg/mL
[2022-09-17] MEDS: FUROSEMIDE 10 MG/ML inj 40 MG IVP (10:26)
[2022-09-17] MEDS: POTASSIUM BICARB 25 MEQ EFFERVESCENT TAB 50 MEQ PO (10:27)
[2022-09-17] MEDS: POTASSIUM CHLORIDE 10 MEQ CAPSULE ER 20 MEQ PO (12:35)
[2022-09-17 14:42] LABS: Slide Review Acceptable Review (Acceptable)
--- NOTE | 2022-09-17 15:39 | P.IMPN_ITS ---
Progress Note: A&P Assessment and plan (1) Sepsis: Problem details: Likely due to UTI with failed outpatient management. Apparently had no problems with bladder emptying or retained urine. Just prior to admission also had a prostate exam which was reportedly normal. Status: Acute (2) Acute UTI: Problem details: E coli due to pansensitive E coli. Now positive blood culture also likely ill coli. Continue ceftriaxone pending culture and sensitivity on the blood culture. Status: Acute (3) Pancytopenia: Problem details: Longstanding problem. Next week has hematology follow-up. CT shows splenomegaly likely related to other hematologic problems. Status: Acute (4) Hyponatremia: Problem details: Stop Fluid restriction and monitor. Encourage p.o. fluid and food. Stop hydrochlorothiazide. Start torsemide for volume control and blood pressure control Status: Acute (5) Pre-diabetes: Problem details: -A1c 5.0. Accu-Cheks. Sliding scale if needed. No home meds. Status: Acute (6) Obesity: Status: Acute (7) Hypertension: Problem details: Stop hydrochlorothiazide. Resume lisinopril as blood pressure allows. Torsemide for volume and blood pressure control. Status: Acute (8) Hypoxia: Problem details: Mild hypoxia. I suspect a component of heart failure with volume overload. Probably also has some sleep apnea which is undiagnosed. Status: Acute (9) Ascending aortic aneurysm: Problem details: Found on chest CT 09/17/2022. Outpatient follow-up Status: Acute (10) Obstructive sleep apnea: Problem details: Clinically suspected. Recommend outpatient sleep study to evaluate Status: Suspected Plan Continue in-hospital for treatment of bacteremia and hypoxia. Possible discharge to home in the next 1-2 days if hypoxia resolves and he is otherwise doing well. Time Spent With Patient Total time spent: Total time spent today is 45 minutes, 30 minutes in coordination care discussing with patient, and other providers ongoing evaluation management of urinary infection, bacteremia, hypoxia, sleep apnea, aortic aneurysm Subjective Date Seen: 09/17/22 Interval history: 76-year-old male admitted to the hospital fever, hypotension, fatigue, malaise. Patient had been diagnosed with the UTI approximately 1 week prior to admission. He was treated with 3 days of Bactrim. Had follow-up with Urology. Shortly after that became ill with the above symptoms. He is admitted the hospital where he was found to have a urinary tract infection. Urine cultures growing pansensitive E coli. Blood culture is also growing pansensitive E coli. He has been treated with ceftriaxone. Reports feeling better today. His appetite is improved his strength is better. He has been on a fluid restriction would like to get off of that. Overnight he developed hypoxemia. He is requiring 1 L of oxygen to maintain his O2 sats in the 90s. He has no previous history of heart or lung disease. Remote history of smoking. No chest pain, cough or fever. Exam Narrative: Exam Narrative: He is alert appears in no distress. Breathing comfortably on 1 L of oxygen. Respirations with a few basilar crackles. Otherwise clear to auscultation. No wheezing. Cardiovascular: S1, S2, regular rate and rhythm. No murmur gallop or rub. Abdomen: Bowel sounds active. Abdomen is soft without tenderness or mass. Extremities without edema. Const: Vital Signs, click to edit/add: Vital Signs - 24 hr 09/16/22 19:02 09/16/22 20:13 09/16/22 22:49 Temperature 100.5 F H 98.5 F 98.7 F Pulse Rate [Right Radial] 90 91 Respiratory Rate 18 18 Blood Pressure [Le ft Arm] 132/86 130/63 Pulse Oximetry 90 91 Oxygen Delivery Me thod Room Air Room Air Oxygen Flow Rate Fraction of Inspir ed Oxygen 09/16/22 22:50 09/16/22 22:51 09/17/22 02:51 Temperature 98.4 F Pulse Rate [Right Radial] 91 94 Respiratory Rate 18 18 Blood Pressure [Le ft Arm] 141/74 H Pulse Oximetry 91 92 Oxygen Delivery Me thod Nasal Cannula Oxygen Flow Rate 2 Fraction of Inspir ed Oxygen 09/17/22 07:00 09/17/22 07:00 09/17/22 07:00 Temperature 98.1 F Pulse Rate [Right Radial] 86 86 Respiratory Rate 18 18 Blood Pressure [Le ft Arm] 124/64 Pulse Oximetry 91 91 Oxygen Delivery Me thod Nasal Cannula Oxygen Flow Rate 2 Fraction of Inspir ed Oxygen 09/17/22 08:35 09/17/22 08:35 09/17/22 11:00 Temperature 98.3 F Pulse Rate [Right Radial] 86 Respiratory Rate 20 20 Blood Pressure [Le ft Arm] 105/58 L Pulse Oximetry 91 92 Oxygen Delivery Me thod Room Air Nasal Cannula Nasal Cannula Oxygen Flow Rate 1 1 Fraction of Inspir ed Oxygen 21 09/17/22 15:00 09/17/22 15:00 09/17/22 15:00 Temperature 98.1 F Pulse Rate [Right Radial] 84 Respiratory Rate 18 Blood Pressure [Le ft Arm] 119/60 Pulse Oximetry 91 91 91 Oxygen Delivery Me thod Nasal Cannula Nasal Cannula Oxygen Flow Rate 1 1 Fraction of Inspir ed Oxygen 09/17/22 15:00 Temperature Pulse Rate [Right Radial] 84 Respiratory Rate 20 Blood Pressure [Le ft Arm] Pulse Oximetry Oxygen Delivery Me thod Oxygen Flow Rate Fraction of Inspir ed Oxygen Documenting provider has reviewed patient's vital signs: yes Labs Labs: Laboratory Results - last 24 hr 09/17/22 09/17/22 06:35 08:30 WBC 1.71 L* RBC 3.21 L Hgb 8.9 L Hct 26.5 L MCV 83 MCH 28 MCHC 34 RDW Coeff of Lenora 16.8 H Plt Count 35 L* Neut % (Auto) 48.5 Lymph % (Auto) 28.1 [place] % (Auto) 15.8 H Eos % (Auto) 0.0 Baso % (Auto) 0.6 Neut # (Auto) 0.80 L Lymph # (Auto) 0.50 L [place] # (Auto) 0.30 Eos # (Auto) 0.00 Baso # (Auto) 0.00 Diff Slide Review Acceptable Review D-Dimer Quant (PE/DVT) 1.38 H ABG pH 7.50 H ABG pCO2 30 L ABG pO2 57.3 L ABG HCO3 24 ABG Total CO2 22 ABG O2 Saturation 93 ABG Base Excess 0.7 Carboxyhemoglobin 2.0 Sodium 137 Potassium 3.4 L Chloride 106 Carbon Dioxide 25 BUN 17 Creatinine 0.8 Estimated Creat Clear 65.89 Estimated GFR 91 Glucose 103 Calcium 8.7 Troponin I 0.05 H C-Reactive Protein 6.6 H NT-Pro-B Natriuret Pep [address] scan - chest: Radiologist's impression: FINDINGS: There is no acute pulmonary embolism. Aortic valvular calcifications are present, a finding which may be seen with aortic stenosis. Ascending thoracic aorta is dilated measuring 4.8 cm diameter. Proximal descending thoracic aorta is dilated measuring 3.6 cm in diameter. No dissection. Coronary artery calcifications are present compatible with coronary artery disease. No significant pericardial effusion. Small mediastinal hilar lymph nodes are nonspecific. There are small bilateral pleural effusions. Mild atelectasis within the lungs. Pulmonary emphysema. No pneumothorax. - 4 cm left adrenal gland nodule is noted on image #[id number]. There is additional nodular thickening of the more superior aspect of the left adrenal gland. Small hiatal hernia. Splenomegaly. - Degenerative changes of the spine. Mild inferior endplate compression deformity of T12 could be more chronic. IMPRESSION: 1. No acute pulmonary embolism. 2. Dilatation of the thoracic aorta. Aortic valvular calcifications are present, a finding which may be seen with aortic stenosis. 3. Coronary artery disease. 4. Pulmonary emphysema. 5. Small pleural effusions with dependent atelectasis. 6. 4 cm left adrenal gland nodule. Additional nodular thickening of the more superior aspect of the adrenal gland. 7. Splenomegaly.
[2022-09-17] MEDS: TORSEMIDE 20 MG TABLET PO (16:02)
--- NOTE | 2022-09-17 22:55 | PC.NURSE ---
End of Shift: Patient pleasant and cooperative. Afebrile. Denies pain. O2 sats 85-88% on room air this morning and afternoon. 1-2L NC to keep sats above 90%. Able to wean off O2 while awake and sats 91-95% on room air. Sats decrease to mid 80s while sleeping, 2L NC applied. Up independently in room and walking in hallway x1. Tolerating regular diet with no nausea.
[2022-09-18 02:50] VITALS: BP 105/61; PULSE 83; RESP 18; TEMP 36.7; O2SAT 96
--- NOTE | 2022-09-18 05:20 | PC.NURSE ---
Shift note: Pt is doing well. Has been on 1L of oxygen. Ambulated independently to the BR. No pain reported. Pt had adequate sleep. Vitally stable.
[2022-09-18] MEDS: cefTRIAXone 2 GM in 0.9 % SODIUM CHLORIDE Mini-bag 100 ML IVPB (06:35)
[2022-09-18] MEDS: SODIUM CHLORIDE 0.9 % (FLUSH) 10 ML SYRINGE 5 ML IVF ×2 (06:36→09:51)
[2022-09-18 06:39] LABS: Basophils Percent Auto 0.9 % (0.0-3.0); Hematocrit 26.3 % (37.0-53.0); Hemoglobin* 8.9 gm/dL (13.5-17.5); Lymphocytes Percent Auto 55.9 % (20-44); Mean Corpuscular HGB Conc 34 gm/dL (32-36); Mean Corpuscular Hemoglobin 28 pg (26-34); Mean Corpuscular Volume 82 fL (80-100); Monocytes Percent Auto 19.8 % (0.0-11.0); Neutrophils Percent Auto 14.4 % (42.0-72.0); RDW Coefficient of Variation % 16.5 % (11.5-15.5); Red Blood Count 3.21 m/uL (4.30-5.90)
[2022-09-18 07:00] VITALS: PULSE 84; RESP 16; RESP 18; O2SAT 95
[2022-09-18 07:06] LABS: Chloride* 102 mmol/L (96-114)
[2022-09-18 07:07] LABS: Potassium* 3.2 mmol/L (3.6-5.1); Sodium* 137 mmol/L (135-149)
[2022-09-18 07:09] LABS: Creatinine* 0.9 mg/dL (0.5-1.5); Est. Creatinine Clearance* 65.89; Estimated Glomerular Filt Rate 88 ml/min
[2022-09-18 07:10] LABS: Blood Urea Nitrogen* 18 mg/dL (7-30); Calcium* 8.5 mg/dL (8.4-10.6); Carbon Dioxide* 32 mmol/L (20-32); Glucose* 107 mg/dL (60-115)
[2022-09-18 07:13] LABS: C Reactive Protein* 6.4 mg/dL (0.5-1.0)
[2022-09-18 07:35] VITALS: BP 119/76; PULSE 84; RESP 16; TEMP 36.8; O2SAT 95
[2022-09-18 07:56] LABS: White Blood Count* 1.11 K/uL (4.50-11.00)
[2022-09-18 07:57] LABS: Platelet Count* 28 K/uL (140-440); Slide Review Reflex Yes
[2022-09-18 07:58] LABS: Slide Review Acceptable Review (Acceptable)
[2022-09-18] MEDS: POTASSIUM CHLORIDE 10 MEQ CAPSULE ER PO (09:50)
[2022-09-18] MEDS: MAGNESIUM OXIDE 400 MG TABLET PO (09:51)
[2022-09-18] MEDS: TORSEMIDE 20 MG TABLET PO (10:06)
[2022-09-18 11:15] VITALS: BP 109/55; PULSE 89; RESP 16; TEMP 36.6; O2SAT 94
[2022-09-18] MEDS: POTASSIUM BICARB 25 MEQ EFFERVESCENT TAB 50 MEQ PO (12:07)
[2022-09-18 12:45] VITALS: BP 109/55; PULSE 89; RESP 18; TEMP 36.6
--- NOTE | 2022-09-18 13:44 | PC.NURSE ---
Discharge note: Pt alert and oriented, pleasant and compliant. Vitals stable, on RA. Pt denies pain. Pt tolerating diet, voiding without issue, BM this AM pt reported normal. IV x2 removed from L arm without issue. D/c education and instructions reviewed with pt and his , all questions answered. Pt states he is looking forward to going home and feels ready. Pt aware of f/u appt and new meds and changes, states understanding. Pt given WC ride out to spouse's car to d/c home.
--- NOTE | 2022-09-18 16:14 | PM.DS1 ---
DS: Providers Provider Date Seen: 09/18/22 Date of admission: 09/15/22 09:08 Primary care physician: Killian Ballard MD Admitting Clinician: Laura Chavez MD Attending Physician on discharge: Stanford Robin MD Date of Discharge: 09/18/22 DS: Diagnosis Discharge Diagnosis (1) Sepsis: Status: Acute Problem details: Likely due to UTI with failed outpatient management. Apparently had no problems with bladder emptying or retained urine. Just prior to admission also had a prostate exam which was reportedly normal. (2) Acute UTI: Status: Acute Problem details: E coli due to pansensitive E coli. Now positive blood culture with E coli. Clinically improved. (3) Pancytopenia: Status: Acute Problem details: Longstanding problem. Next week has hematology follow-up. CT shows splenomegaly likely related to other hematologic problems. Patient is having progressive neutropenia during this hospital stay. Possibly related to ceftriaxone therapy. Has follow-up with a hematology in 2 days. (4) Hyponatremia: Status: Acute Problem details: Hyponatremia resolved. Discontinue hydrochlorothiazide. Start torsemide for volume control and blood pressure control. (5) Pre-diabetes: Status: Acute Problem details: -A1c 5.0. Accu-Cheks. Sliding scale if needed. No home meds. (6) Obesity: Status: Acute (7) Hypertension: Status: Acute Problem details: Stop hydrochlorothiazide. Resume lisinopril as blood pressure allows. Torsemide for volume and blood pressure control. (8) Hypoxia: Status: Acute Problem details: Mild hypoxia. I suspect a component of heart failure with volume overload. Probably also has some sleep apnea which is undiagnosed. With diuresis his daytime hypoxia resolved but continued to have nocturnal hypoxia probably due to sleep apnea. Outpatient sleep study recommended (9) Ascending aortic aneurysm: Status: Acute Problem details: Found on chest CT 09/17/2022. Outpatient follow-up. Recommend outpatient echo cardiogram (10) Obstructive sleep apnea: Status: Suspected Problem details: Clinically suspected. Recommend outpatient sleep study to evaluate. DS: Summary Hospital Course Hospital Course: 76-year-old male admitted to the hospital with sepsis due to urinary tract infection. He was treated briefly as an outpatient for UTI. He became quite ill and was admitted to the hospital. Received fluid resuscitation and signs and symptoms of sepsis resolved. He did develop some hypoxia with this probably related to volume overload. This was managed with diuresis. Pancytopenia was noted on admission. He had progressive neutropenia during his hospital stay. This was thought to be a combination of his chronic pancytopenia with possible worsening due to ceftriaxone therapy. Follow-up appointment in 2 days with Hematology. Status at Discharge Functional status at discharge: independent ambulation Overall status at discharge: patient is back to baseline Time Spent with Patient Time attestation: Total time spent providing and/or coordinating discharge services: Time spent: Greater than 30 minutes Exam Narrative: Exam Narrative: He is alert and appears in no distress. Breathing is unlabored. No significant edema. Ambulates without difficulty. Const: Vital Signs, click to edit/add: Vital Signs - 24 hr 09/17/22 19:00 09/17/22 23:00 09/17/22 23:00 Temperature 98.1 F Pulse Rate Pulse Rate [Right Radial] 89 81 Respiratory Rate 20 18 Blood Pressure Blood Pressure [Le ft Arm] 127/67 Blood Pressure [Ri ght Arm] Pulse Oximetry 95 91 Oxygen Delivery Me thod Room Air Oxygen Flow Rate 09/17/22 23:00 09/17/22 23:00 09/18/22 02:50 Temperature 98.1 F 98.1 F Pulse Rate Pulse Rate [Right Radial] 81 83 Respiratory Rate 18 18 18 Blood Pressure Blood Pressure [Le ft Arm] 105/61 Blood Pressure [Ri ght Arm] Pulse Oximetry 91 91 96 Oxygen Delivery Me thod Room Air Nasal Cannula Nasal Cannula Oxygen Flow Rate 1 1 09/18/22 07:35 09/18/22 07:00 09/18/22 07:00 Temperature 98.2 F Pulse Rate Pulse Rate [Right Radial] 84 84 Respiratory Rate 16 16 Blood Pressure Blood Pressure [Le ft Arm] Blood Pressure [Ri ght Arm] 119/76 Pulse Oximetry 95 95 Oxygen Delivery Me thod Nasal Cannula Oxygen Flow Rate 1 09/18/22 07:00 09/18/22 11:15 09/18/22 12:45 Temperature 97.8 F 97.8 F Pulse Rate 89 Pulse Rate [Right Radial] 89 Respiratory Rate 18 16 18 Blood Pressure 109/55 L Blood Pressure [Le ft Arm] Blood Pressure [Ri ght Arm] 109/55 L Pulse Oximetry 95 94 Oxygen Delivery Me thod Nasal Cannula Room Air Oxygen Flow Rate 1 Documenting provider has reviewed patient's vital signs: yes DS: Data Data Completed and Pending Labs on day of discharge: Labs from last 24 hours 09/18/22 06:26 WBC 1.11 L* RBC 3.21 L Hgb 8.9 L Hct 26.3 L MCV 82 MCH 28 MCHC 34 RDW Coeff of Lenora 16.5 H Plt Count 28 L* Neut % (Auto) 14.4 L Lymph % (Auto) 55.9 H [place] % (Auto) 19.8 H Eos % (Auto) 0.0 Baso % (Auto) 0.9 Neut # (Auto) 0.20 L Lymph # (Auto) 0.60 L [place] # (Auto) 0.20 Eos # (Auto) 0.00 Baso # (Auto) 0.00 Diff Slide Review Acceptable Review Sodium 137 Potassium 3.2 L Chloride 102 Carbon Dioxide 32 BUN 18 Creatinine 0.9 Estimated Creat Clear 65.89 Estimated GFR 88 Glucose 107 Calcium 8.5 C-Reactive Protein 6.4 H Preliminary micro results at discharge 09/14/22 18:40 Blood Culture - Preliminary Blood NO GROWTH AFTER 72 HOURS 09/14/22 18:46 Blood Culture - Preliminary Blood Escherichia coli Discharge Plan Discharge Disposition: Home, Self-Care Date of Admission: 09/15/22 09:08 Attending Provider on Discharge: Phil Robin Primary Care Provider: Killian Ballard Condition: Guarded Anticipated Discharge Date/Time: 09/18/22 10:59 Discharge Medications: New amoxicillin 250 mg Capsule 500 mg PO TID Qty: 21 0RF potassium chloride 10 mEq Capsule, Extended Release 20 meq PO DAILY Qty: 60 0RF magnesium oxide 400 mg (241.3 mg magnesium) Tablet 400 mg PO DAILY Qty: 30 0RF torsemide 10 mg tablet 10 mg PO QAM Qty: 30 2RF Continued (DME) Accu-Chek Alejandrina Plus test strp Strip MISCELLANEOUS DAILY (DME) lancets [Accu-Chek Softclix Lancets] Misc MISCELLANEOUS DAILY simvastatin 20 mg tablet 20 mg PO QPM aspirin 81 mg capsule 81 mg PO DAILY amoxicillin 500 mg capsule 2,000 mg PO ONCE Qty: 4 3RF Rx Instructions: Take 4 capsules (2000mg) 1 hour prior to dental appointment. Changed lisinopril 20 mg tablet 10 mg PO DAILY Qty: 30 0RF Discontinued hydrochlorothiazide 25 mg tablet 25 mg PO DAILY Discharge Orders: Discharge Order (Routine); Ordered 09/18/22 Ordered By: Phil Robin Patient Education: Potassium Chloride (By mouth), Amoxicillin (By mouth), Torsemide (By mouth), Magnesium (By mouth) Additional Instructions: See the [facility] this week as scheduled. Activity Level: Activity as Tolerated Discharge Diet: Regular Follow Up Appointments: Killian Ballard MD [Primary Care Provider] - 09/26/22 2:00 pm (Appointment next week. Check basic metabolic panel and magnesium next week.) Forms: [employer] Info Instructions
== END 2022-09-18 12:50 | disposition home or self-care (01) | DRG 872 ==
LOC: ED 18:45 → MEDSURG 19:05
PROVIDERS: Family Medicine; Admitting Provider Family Medicine; Emergency Provider Family Medicine; PCP Family Medicine; Visit Provider Family Medicine
DX: A41.9 Sepsis, unspecified organism (principal); N39.0 Urinary tract infection, site not specified; D61.818 Other pancytopenia; E87.1 Hypo-osmolality and hyponatremia; B96.20 Unspecified Escherichia coli [E. coli] as the cause of diseases classified elsewhere; G47.33 Obstructive sleep apnea (adult) (pediatric); R09.02 Hypoxemia; R73.03 Prediabetes; I10 Essential (primary) hypertension; E66.9 Obesity, unspecified; I71.21 Aneurysm of the ascending aorta, without rupture; E78.5 Hyperlipidemia, unspecified; Z96.641 Presence of right artificial hip joint
CPT/HCPCS: 36415; 36430; 36600; 71045; 71260; 80048; 80053; 80076; 81003; 81015; 82330; 82803; 83036; 83605; 83735; 83880; 84145; 84443; 84484; 85025; 85027; 85379; 85610; 86140; 86850; 86900; 86901; 86922; 87040; 87086; 87186; 87635; 93005; 94761; 99284; 99285; A9270; C9113; G0378; J0696; J1650; J1940; J7030; J7050; P9016; Q9967

== ENCOUNTER 2022-11-27 20:27 | Outpatient (CLI) | payer MEDICARE, BC, SELFPAY | END 2022-11-27 20:28 | disposition home or self-care (01) | LOC: SLEEP 20:27 | PROVIDERS: PCP Family Medicine; Visit Provider Internal Medicine | DX: G47.33 Obstructive sleep apnea (adult) (pediatric) (principal) | CPT/HCPCS: 95810 ==